=== PATIENT | male | born 1955 | race Asian ===

== ENCOUNTER 2017-03-11 10:44 | Day surgery (SDC) | payer OTHER ==
[2017-03-08 15:50] VITALS: BMI 25.7
[~2017-03-11] VITALS: Ht 175.3 cm; Wt 76.7 kg
[2017-03-11] VITALS (14 sets, daily range): BP systolic 107–128; BP diastolic 63–78; PULSE 50–66; RESP 14–24; Ht 175.3 cm; Wt 76.7 kg
[~2017-03-11 10:44] MED LIST: CEFAZOLIN 2 GM/50 ML (PMX) 50 ML IVPB ONE; SOD CHLORIDE 0.9% 1,000 ML IV ONE
[2017-03-11] MEDS ORDERED: TAMS-14 PO (11:17)
[2017-03-11] MEDS ORDERED: LOSA50TA6 PO (11:17)
[2017-03-11] MEDS ORDERED: OMEP20CA16 PO (11:17)
[2017-03-11] MEDS ORDERED: AMLO-145 PO (11:17)
[2017-03-11] MEDS ORDERED: BUPIVACAINE 0.25% (MPF) 30 ML INJ ONE (14:29)
[2017-03-11] MEDS ORDERED: MIDAZOLAM 1 MG/ML 2 ML INJ ONE (14:41)
[2017-03-11] MEDS ORDERED: ROCURONIUM 50 MG INJ ONE (14:41)
[2017-03-11] MEDS ORDERED: LIDOCAINE 2% (SDV) 5 ML INJ ONE (14:41)
[2017-03-11] MEDS ORDERED: FENTAnyl 50 MCG/ML VIAL ONE (14:41)
[2017-03-11] MEDS ORDERED: PROPOFOL 20 ML ONE (14:41)
[2017-03-11] MEDS ORDERED: SUCCINYLCHOLINE CHLORIDE 100 MG/5 ML SYG IV ONE (14:41)
[2017-03-11] MEDS ORDERED: CEFAZOLIN 1 GM INJ ONE (15:03)
[2017-03-11] MEDS ORDERED: DEXAMETHASONE 4 MG/ML 1 ML INJ ONE (15:05)
[2017-03-11] MEDS ORDERED: ONDANSETRON 4 MG INJ ONE (15:05)
[2017-03-11] MEDS ORDERED: EPHEDrine SULFATE 50 MG/5 ML SYG ONE (15:06)
[2017-03-11] MEDS ORDERED: GLYCOPYRROLATE 0.4 MG INJ ONE (15:06)
[2017-03-11] MEDS ORDERED: NEOSTIGMINE 3 MG/3 ML SYRINGE ONE ×2 (15:06→15:22)
[2017-03-11] MEDS ORDERED: KETOROLAC 30 MG INJ ONE (15:24)
[2017-03-11] MEDS ORDERED: HYDROmorphONE (0.2 MG/ML) 10ML SYG IV PRN (15:30)
[2017-03-11] MEDS ORDERED: PROCHLORPERAZINE 10 MG INJ IV PRN (15:30)
[2017-03-11] MEDS ORDERED: MEPERIDINE 25 MG INJ IV PRN (15:30)
[2017-03-11] MEDS ORDERED: HYDROCODONE/APAP (5/325) TAB PO ONE (15:30)
[2017-03-11] MEDS ORDERED: ONDANSETRON 4 MG INJ IV PRN (15:30)
[2017-03-11] MEDS ORDERED: OXYCODONE/ACETAMINOPHEN (5/325) TAB PO PRN (15:30)
[2017-03-11] MEDS ORDERED: FENTAnyl 50 MCG/ML VIAL IV PRN (15:30)
[2017-03-11] MEDS ORDERED: DIPHENHYDRAMINE 50 MG INJ IV PRN (15:30)
--- NOTE | 2017-03-11 15:34 | OPR ---
Date/Time of Note Date/Time of Note DATE: 03/11/17 TIME: 15:29 Operative Report Procedure Date: Mar 11, 2017 Preoperative Diagnosis symptomatic gallstones and liver CARLOS Postoperative Diagnosis same Operation Performed 1. laparoscopic cholecystectomy 2. wedge liver biopsy cpt code 67579 3. therapeutic injection of subcutaneous marcaine cpt code 54505 Surgeon: Stacia WONG Specimens gallbladder wedge liver biopsy Indications This is a 61-year-old male with subsided gallstones and liver Carlos on imaging. He requires surgical excision of his gallbladder and liver biopsy. Procedure Description Patient is taken to the OR and prepped and draped in usual sterile fashion. Surgical timeout was performed IV antibiotics given. Infraumbilical transverse incision is made with a 15 blade. Dissection cautery was carried down to the fascia. Fascia is grasped with [place]'s and divided with curved Taylor scissors. 0 Vicryl U stitch was placed into the fascia. Balloon was stunned trocar is introduced. Pneumoperitoneum is established. Midepigastric 12 mm optical trocar was placed under direct visualization. Right upper quadrant right upper flank 5 mm optical trocar placed under direct visualization. Initial inspection there is adhesions to the gallbladder these were taken down bluntly. The gallbladder was grasped and retracted laterally and down. The cystic duct is identified and dissected out the critical view was established. The cystic duct and cystic artery was divided using 35 mm echelon vascular stapler because of the thickness of the cystic duct. Additional clips were placed along the staple line. The gallbladder was taken off the gallbladder bed. There is good hemostasis the surgical site. Gallbladder was retrieved using an Endo Catch bag. A wedge liver biopsy in segment 5 was then performed. There is good hemostasis. This was performed using scissor cautery. The specimen was retracted to the mid epigastric port. Ports removed under direct visualization after the Endo Catch bag was retrieved. 0 Vicryl U stitch was tied down. Skin was closed using skin braulio. Therapeutic subcutaneous injection of incision line with Marcaine was performed dry dressings were applied. Stacia WONG Mar 11, 2017 15:34
== END 2017-03-11 18:00 | disposition home or self-care (01) ==
LOC: SDS 10:44
PROVIDERS: ATTEND Surgery
DX: K80.10 Calculus of gallbladder with chronic cholecystitis without obstruction (principal); K75.81 Nonalcoholic steatohepatitis (NASH); I10 Essential (primary) hypertension; N40.0 Benign prostatic hyperplasia without lower urinary tract symptoms
CPT/HCPCS: 47100; 47562; 88304; 88307; 88313; J0690; J1100; J1885; J2175; J2250; J2405; J2710; J3010; J7999; Z7512; Z7610